=== PATIENT | female | born 1940 | race Caucasian/White ===

== ENCOUNTER 2018-09-22 09:14 | Observation (INO) | payer MEDICARE, BC ==
[2018-09-22] MEDS ORDERED: SODIUM CHLORIDE 0.9% 1,000 ML IV STA (09:22)
[2018-09-22] MEDS ORDERED: ACETAMINOPHEN TAB 325 MG TAB PO STA (09:22)
--- NOTE | 2018-09-22 09:52 | ED ---
General Adult HPI - General Chief complaint: Weakness Stated complaint: weakness, shaking Time Seen by Provider: 09/22/18 09:22 Source: patient, RN notes reviewed, old records reviewed Mode of arrival: wheelchair Limitations: no limitations - History of Present Illness Initial comments: 78-year-old female presented for evaluation of fever and chills and generalized weakness. Patient was seen at an outside hospital with urinary tract infection 4 days prior to arrival. She was admitted and subsequently released. She states she was feeling much better at the time of discharge. She was prescribed Macrobid and has been taking this for the past 2 days. Yesterday evening she developed subjective fever chills and Eros's. She's had some nausea without vomiting. No abdominal pain. No chest pain or dyspnea. No cough. No rash. - Related Data Home Medications Medication Instructions Recorded Confirmed ALPRAZolam [Xanax] 0.25 mg PO DAILY PRN 09/22/18 09/22/18 Aspirin EC [Ecotrin Low Dose] 81 mg PO DAILY 09/22/18 09/22/18 Atenolol [Tenormin] 25 mg PO DAILY 09/22/18 09/22/18 Lisinopril [Zestril] 20 mg PO DAILY 09/22/18 09/22/18 Omeprazole [PriLOSEC] 20 mg PO DAILY 09/22/18 09/22/18 Verapamil HCl [Verapamil ER] 120 mg PO DAILY 09/22/18 09/22/18 Allergies Allergy/AdvReac Type Severity Reaction Status Date / Time nitrofurantoin AdvReac Nausea & Verified 09/22/18 09:51 [From Macrobid] Vomiting sulfamethoxazole AdvReac Nausea & Verified 09/22/18 09:51 [From Bactrim] Vomiting trimethoprim [From Bactrim] AdvReac Nausea & Verified 09/22/18 09:51 Vomiting Review of Systems ROS Statement: Those systems with pertinent positive or pertinent negative responses have been documented in the HPI. ROS Other: All systems not noted in ROS Statement are negative. Past Medical History Past Medical History: Hypertension Additional Past Medical History / Comment(s): hiatal hernia History of Any Multi-Drug Resistant Organisms: None Reported Past Psychological History: No Psychological Hx Reported Smoking Status: Never smoker Past Alcohol Use History: None Reported Past Drug Use History: None Reported General Exam Limitations: no limitations General appearance: alert, in no apparent distress Head exam: Present: atraumatic, normocephalic Eye exam: Present: normal appearance, PERRL ENT exam: Present: mucous membranes dry Neck exam: Present: normal inspection. Absent: tenderness, meningismus Respiratory exam: Present: normal lung sounds bilaterally. Absent: respiratory distress, wheezes, rales Cardiovascular Exam: Present: regular rate, normal rhythm GI/Abdominal exam: Present: soft. Absent: distended, tenderness, guarding, rebound Extremities exam: Present: normal inspection, normal capillary refill. Absent: pedal edema Neurological exam: Present: alert, oriented X3, CN II-XII intact. Absent: motor sensory deficit Psychiatric exam: Present: normal affect, normal mood Skin exam: Present: warm, dry, intact. Absent: cyanosis, diaphoretic Course Vital Signs 09/22/18 09:16 Temperature 100.8 F H Pulse Rate 86 Respiratory 18 Rate Blood Pressure 160/73 O2 Sat by Pulse 98 Oximetry EKG Findings - EKG Comments: EKG Findings:: EKG: Normal sinus rhythm and LVH, left extremity deviation, rate of 84, ND interval 178, QRS duration 84, QTC 432 Medical Decision Making - Medical Decision Making 78-year-old female presenting for evaluation of fever, generalized weakness. She currently being treated for urinary tract infection. She has complained of chills, Eros's. No abdominal pain. CBC is within normal limits with the exception of a 0.3 PMNs. Chest x-ray negative for focal pneumonia. Urinalysis is negative, influenza negative. Patient's laboratory studies are otherwise unremarkable. I did reevaluate this patient, she has no focal abdominal pain. Given the clean urinalysis recent UTI, I am concerned the patient may be bacteremic. Both urine culture and blood cultures are pending. She will be admitted for IV hydration, IV antibiotics awaiting culture results. - Lab Data Result diagrams: 09/22/18 09:45 09/22/18 09:45 Lab Results 09/22/18 09/22/18 09/22/18 Range/Units 09:45 09:45 09:45 WBC 8.9 (3.8-10.6) k/uL RBC 4.98 (3.80-5.40) m/uL Hgb 13.4 (11.4-16.0) gm/dL Hct 39.1 (34.0-46.0) % MCV 78.6 L (80.0-100.0) fL MCH 26.9 (25.0-35.0) pg MCHC 34.2 (31.0-37.0) g/dL RDW 14.7 (11.5-15.5) % Plt Count 172 (150-450) k/uL Neutrophils % 93 % Lymphocytes % 3 % Monocytes % 3 % Eosinophils % 1 % Basophils % 0 % Neutrophils # 8.3 H (1.3-7.7) k/uL Lymphocytes # 0.3 L (1.0-4.8) k/uL Monocytes # 0.2 (0-1.0) k/uL Eosinophils # 0.1 (0-0.7) k/uL Basophils # 0.0 (0-0.2) k/uL Sodium 132 L (137-145) mmol/L Potassium 4.4 (3.5-5.1) mmol/L Chloride 99 (98-107) mmol/L Carbon Dioxide 23 (22-30) mmol/L Anion Gap 10 mmol/L BUN 15 (7-17) mg/dL Creatinine 1.14 H (0.52-1.04) mg/dL Est GFR (CKD-EPI)AfAm 53 (>60 ml/min/1.73 sqM) Est GFR (CKD-EPI)NonAf 46 (>60 ml/min/1.73 sqM) Glucose 133 H (74-99) mg/dL Plasma Lactic Acid Aashish (0.7-2.0) mmol/L Calcium 9.2 (8.4-10.2) mg/dL Total Bilirubin 0.8 (0.2-1.3) mg/dL AST 24 (14-36) U/L ALT 13 (9-52) U/L Alkaline Phosphatase 61 (38-126) U/L Total Protein 7.0 (6.3-8.2) g/dL Albumin 4.3 (3.5-5.0) g/dL Urine Color Urine Appearance (Clear) Urine pH (5.0-8.0) Ur Specific [place] (1.001-1.035) Urine Protein (Negative) Urine Glucose (UA) (Negative) Urine Ketones (Negative) Urine Blood (Negative) Urine Nitrite (Negative) Urine Bilirubin (Negative) Urine Urobilinogen (<2.0) mg/dL Ur Leukocyte Esterase (Negative) Influenza Type A RNA Not Detected (Not Detectd) Influenza Type B (PCR) Not Detected (Not Detectd) 09/22/18 09/22/18 Range/Units 09:45 09:45 WBC (3.8-10.6) k/uL RBC (3.80-5.40) m/uL Hgb (11.4-16.0) gm/dL Hct (34.0-46.0) % MCV (80.0-100.0) fL MCH (25.0-35.0) pg MCHC (31.0-37.0) g/dL RDW (11.5-15.5) % Plt Count (150-450) k/uL Neutrophils % % Lymphocytes % % Monocytes % % Eosinophils % % Basophils % % Neutrophils # (1.3-7.7) k/uL Lymphocytes # (1.0-4.8) k/uL Monocytes # (0-1.0) k/uL Eosinophils # (0-0.7) k/uL Basophils # (0-0.2) k/uL Sodium (137-145) mmol/L Potassium (3.5-5.1) mmol/L Chloride (98-107) mmol/L Carbon Dioxide (22-30) mmol/L Anion Gap mmol/L BUN (7-17) mg/dL Creatinine (0.52-1.04) mg/dL Est GFR (CKD-EPI)AfAm (>60 ml/min/1.73 sqM) Est GFR (CKD-EPI)NonAf (>60 ml/min/1.73 sqM) Glucose (74-99) mg/dL Plasma Lactic Acid Aashish 1.8 (0.7-2.0) mmol/L Calcium (8.4-10.2) mg/dL Total Bilirubin (0.2-1.3) mg/dL AST (14-36) U/L ALT (9-52) U/L Alkaline Phosphatase (38-126) U/L Total Protein (6.3-8.2) g/dL Albumin (3.5-5.0) g/dL Urine Color Yellow Urine Appearance Clear (Clear) Urine pH 8.0 (5.0-8.0) Ur Specific [place] 1.018 (1.001-1.035) Urine Protein Negative (Negative) Urine Glucose (UA) Negative (Negative) Urine Ketones Negative (Negative) Urine Blood Negative (Negative) Urine Nitrite Negative (Negative) Urine Bilirubin Negative (Negative) Urine Urobilinogen <2.0 (<2.0) mg/dL Ur Leukocyte Esterase Negative (Negative) Influenza Type A RNA (Not Detectd) Influenza Type B (PCR) (Not Detectd) Disposition Clinical Impression: UTI (urinary tract infection), Generalized weakness, Dehydration Disposition: ADMITTED IP TO THIS HOSP Condition: Stable Is patient prescribed a controlled substance at d/c from ED?: No Referrals: Nonstaff,Physician [Primary Care Provider] - 1-2 days Decision to Admit Reason: Admit from EC Decision Date: 09/22/18 Decision Time: 12:32
[2018-09-22 10:06] LABS: Appearance,Urine Clear (Clear); Bilirubin,Urine Negative (Negative); Blood,Urine Negative (Negative); Color,Urine Yellow; Glucose,Urine (UA) Negative (Negative); Ketones,Urine Negative (Negative); Leukocyte Esterase,Urine Negative (Negative); Nitrite,Urine Negative (Negative); Protein,Urine Negative (Negative); Specific Gravity,Urine 1.018 (1.001-1.035); Urobilinogen,Urine <2.0 mg/dL (<2.0)
[2018-09-22 10:15] LABS: Albumin 4.3 g/dL (3.5-5.0); Calcium 9.2 mg/dL (8.4-10.2); Potassium 4.4 mmol/L (3.5-5.1); Total Bilirubin 0.8 mg/dL (0.2-1.3)
[2018-09-22 10:22] LABS: Basophils % (A) 0 %; Eosinophils # (A) 0.1 k/uL (0-0.7); Eosinophils % (A) 1 %; HCT 39.1 % (34.0-46.0); HGB 13.4 gm/dL (11.4-16.0); Lymphocytes # (A) 0.3 k/uL (1.0-4.8); Lymphocytes % (A) 3 %; MCH 26.9 pg (25.0-35.0); MCHC 34.2 g/dL (31.0-37.0); MCV 78.6 fL (80.0-100.0); Mean Platelet Volume 8.1; Monocytes # (A) 0.2 k/uL (0-1.0); Monocytes % (A) 3 %; Neutrophils # (A) 8.3 k/uL (1.3-7.7); Neutrophils % (A) 93 %; Platelet Count 172 k/uL (150-450); RBC 4.98 m/uL (3.80-5.40); RDW 14.7 % (11.5-15.5); WBC 8.9 k/uL (3.8-10.6)
[2018-09-22] MEDS ORDERED: cefTRIAXone IN SWFI 1,000 MG/10 ML SYRINGE IVP STA (10:34)
--- NOTE | 2018-09-22 10:36 | XR ---
EXAMINATION TYPE: XR chest 2V DATE OF EXAM: 09/22/2018 COMPARISON: NONE TECHNIQUE: PA and lateral views submitted. HISTORY: Fever FINDINGS: The lungs are clear and there is no pneumothorax, pleural effusion, or focal pneumonia. Atheroscler otic changes aorta. Hyperinflation noted. Hypertrophic and degenerative change of the spine. Biapical pleural thickening. Heart size normal. IMPRESSION: 1. Correlate for COPD.
[2018-09-22] MEDS ORDERED: NALOXONE 0.4 MG/ML 1 ML VIAL IV PRN (12:27)
[2018-09-22] MEDS: SODIUM CHLORIDE 0.9% 1,000 ML IV SCH ×2 (12:34→17:12)
[2018-09-22] MEDS ORDERED: ALPRAZolam 0.25 MG TAB PO PRN (16:29)
[2018-09-22] MEDS ORDERED: ATENOLOL 25 MG TAB PO SCH (16:30)
[2018-09-22] MEDS ORDERED: VERAPAMIL SR 120 MG TABLET.ER PO SCH (16:30)
[2018-09-22] MEDS ORDERED: ASPIRIN 81 MG PO SCH (16:30)
--- NOTE | 2018-09-22 17:08 | P.HPIM ---
History of Present Illness H&P Date: 09/22/18 Chief Complaint: Chills 78-year-old female with PMH of hypertension and hiatal hernia presents to the ED for generalized weakness and chills. Patient reports going to the ED at [facility] on Wednesday for generalized weakness, nausea and burning lower abdominal pain. Patient was found to be hyponatremic and was diagnosed with UTI on urinalysis while hospitalized. Apparently, she had been started on a water pill recently by her PCP. She was discharged on Wednesday with a prescription for Macrobid. Patient reports taking 2 tablets of Macrobid on Wednesday. On , patient noted that she had chills with uncontrollable shaking. Patient reports a previous incidents when she took Bactrim, was told that she was ALLERGIC to sulfa medications. She took her blood pressure at that time which was elevated at 189/94. Her symptoms continued to persist, prompting her to come to the ED at [facility]. Patient reports her blood pressure to be usually in the 140s over 70s. [facility] pressure management. She also sees Dr. Armijo for hiatal hernia. Patient currently complains of headache that is in the frontal and occipital area. Patient reports that she usually gets a headache when her blood pressure is too high. She denies any lower extremity edema, nausea, fever, cough, chest pain, shortness of breath, palpitations, changes in urination or bowel habits. No changes in appetite or weight. She denies any dizziness, numbness/weakness/tingling of the extremities. In the ED, patient was noted to have a T-max of 100.8F. Her vital signs were otherwise within normal limits. CBC showed no leukocytosis but did show a left shift. CMP showed sodium of 132, creatinine of 1.14 and glucose of 133. Lactic acid was negative. Urinalysis was clean. Patient is admitted for dehydration, hy ponatremia, and possible infectious etiology. Review of Systems Pertinent positives and negatives as discussed in HPI, a complete review of systems was performed and all other systems are negative. Past Medical History Past Medical History: GERD/Reflux, Hypertension, Osteoarthritis (OA) Additional Past Medical History / Comment(s): Hiatal hernia, UTIs lately, constipation, pt thinks years ago she was told she had an arrhythmia-does not recall details. History of Any Multi-Drug Resistant Organisms: None Reported Past Surgical History: Tonsillectomy Additional Past Surgical History / Comment(s): Colonoscopy Past Anesthesia/Blood Transfusion Reactions: No Reported Reaction Smoking Status: Never smoker - Past Family History Father Family Medical History: CVA/TIA Additional Family Medical History / Comment(s): Father of a CVA at the age of 69yrs. Mother Family Medical History: No Reported History Additional Family Medical History / Comment(s): Mother was healthy and lived to be 95yrs old. Medications and Allergies Home Medications Medication Instructions Recorded Confirmed Type ALPRAZolam [Xanax] 0.25 mg PO DAILY PRN 09/22/18 09/22/18 History Aspirin EC [Ecotrin Low Dose] 81 mg PO DAILY 09/22/18 09/22/18 History Atenolol [Tenormin] 25 mg PO DAILY 09/22/18 09/22/18 History Lisinopril [Zestril] 20 mg PO DAILY 09/22/18 09/22/18 History Omeprazole [PriLOSEC] 20 mg PO DAILY 09/22/18 09/22/18 History Verapamil HCl [Verapamil ER] 120 mg PO DAILY 09/22/18 09/22/18 History Allergies Allergy/AdvReac Type Severity Reaction Status Date / Time nitrofurantoin AdvReac Nausea & Verified 09/22/18 09:51 [From Macrobid] Vomiting Sulfa (Sulfonamide AdvReac Nausea & Verified 09/22/18 15:15 Antibiotics) Vomiting sulfamethoxazole AdvReac Nausea & Verified 09/22/18 09:51 [From Bactrim] Vomiting trimethoprim [From Bactrim] AdvReac Nausea & Verified 09/22/18 09:51 Vomiting Physical Exam Vitals: Vital Signs Temp Pulse Pulse Resp BP BP Pulse Ox 09/22/18 13:41 98.1 F 90 18 169/77 98 09/22/18 13:00 98.8 F 82 18 142/64 98 09/22/18 12:40 98.5 F 81 18 142/64 98 09/22/18 09:16 100.8 F H 86 18 160/73 98 Intake and Output 09/22/18 09/22/18 09/22/18 06:59 14:59 22:59 Other: Voiding Method Toilet Weight 71.668 kg General: [non toxic], [no distress], [appears at stated age] Derm: [warm], [dry] Head: [atraumatic], [normocephalic], [symmetric] Eyes: [EOMI], [no lid lag], [anicteric sclera] Mouth: [no lip lesion], [mucus membranes moist] Cardiovascular: [S1S2 reg], [no murmur], [positive DP pulse bilateral] Lungs: [CTA bilateral], [no rhonchi, no rales] , [no accessory muscle use] Abdominal: [soft], [ nontender to palpation], [no guarding], [no appreciable organomegaly] Ext: [no gross muscle atrophy], [no edema], [no contractures] Neuro: [ CN II-XI grossly intact], [no focal neuro deficits] Psych: [Alert], [oriented], [appropriate affect] Results CBC & Chem 7: 09/22/18 09:45 09/22/18 09:45 Labs: Abnormal Lab Results - Last 24 Hours (Table) 09/22/18 09/22/18 Range/Units 09:45 09:45 MCV 78.6 L (80.0-100.0) fL Neutrophils # 8.3 H (1.3-7.7) k/uL Lymphocytes # 0.3 L (1.0-4.8) k/uL Sodium 132 L (137-145) mmol/L Creatinine 1.14 H (0.52-1.04) mg/dL Glucose 133 H (74-99) mg/dL Thrombosis Risk Factor Assmnt - Choose All That Apply Any of the Below Risk Factors Present?: Yes Each Factor Represents 1 point: Obesity (BMI >25) Other Risk Factors: Yes Each Risk Factor Represents 3 Points: Age 75 years or older Other congenital or acquired thrombophilia - If yes, enter type in comment: No Thrombosis Risk Factor Assessment Total Risk Factor Score: 4 Thrombosis Risk Factor Assessment Level: Moderate Risk Assessment and Plan Assessment: Assessment and Plan Fever and chills with neutrophilia Hyponatremia Acute kidney injury Hypertension Hiatal hernia T-max 100.8F. Patient has no leukocytosis but does have a left shift with neutrophilia. Urinalysis is negative. Influenza negative. Chest x-ray shows signs of COPD. I was able to call [facility] and review the urine culture, patient had no growth after 18 hours. Lactic acid negative. Plan: Tylenol as needed for fever. Continue normal saline at 75 mL per hour. We'll hold off antibiotics at this time. Follow blood and urine culture. Morning CBC. Sodium 132 likely secondary to diuretic and hypovolemic hyponatremia. Plan: Continue normal saline at 75 mL per hour. Daily BMP. Creatinine 1.14 likely secondary to dehydration. Plan: Continue normal saline at 75 mL per hour. Daily BMP. BP 169/77. Her headache is likely due to elevated BP. Plan: Continue atenolol, lisinopril and verapamil. Monitor vitals, adjust medications as necessary. Plan: Continue Protonix. Follow Dr. Armijo in the outpatient setting. Patient admitted for fever and chills with neutrophilia. She is hemodynamically stable. She has no source of infection at this time so we will hold off antibiotics. Follow cultures. Patient is pending clinical improvement. Likely DC tomorrow.
[2018-09-22] MEDS: LISINOPRIL 20 MG TAB PO SCH (17:11)
[2018-09-22] MEDS: ACETAMINOPHEN TAB 325 MG TAB PO PRN ×2 (17:11→23:11)
[2018-09-22] MEDS: PANTOPRAZOLE 40 MG TABLET PO SCH (17:13)
[2018-09-23 00:44] VITALS: RESP 18
[2018-09-23] MEDS: SODIUM CHLORIDE 0.9% 1,000 ML IV SCH (02:23)
[2018-09-23 07:22] VITALS: BP 136/65; PULSE 71; TEMP 98
[2018-09-23] MEDS: LISINOPRIL 20 MG TAB PO SCH (08:11)
[2018-09-23] MEDS: PANTOPRAZOLE 40 MG TABLET PO SCH (08:11)
[2018-09-23 08:18] LABS: Basophils % (A) 1 %; Eosinophils # (A) 0.2 k/uL (0-0.7); Eosinophils % (A) 7 %; HGB 11.7 gm/dL (11.4-16.0); Lymphocytes # (A) 0.3 k/uL (1.0-4.8); Lymphocytes % (A) 11 %; MCH 26.3 pg (25.0-35.0); MCHC 32.6 g/dL (31.0-37.0); MCV 80.6 fL (80.0-100.0); Mean Platelet Volume 7.6; Monocytes # (A) 0.1 k/uL (0-1.0); Monocytes % (A) 4 %; Neutrophils # (A) 2.4 k/uL (1.3-7.7); Neutrophils % (A) 77 %; Platelet Count 155 k/uL (150-450); RBC 4.46 m/uL (3.80-5.40); RDW 14.4 % (11.5-15.5); WBC 3.1 k/uL (3.8-10.6)
[2018-09-23 08:28] LABS: Albumin 3.2 g/dL (3.5-5.0); Calcium 8.3 mg/dL (8.4-10.2); Potassium 3.9 mmol/L (3.5-5.1); Total Bilirubin 0.4 mg/dL (0.2-1.3); Total Protein 5.6 g/dL (6.3-8.2)
--- NOTE | 2018-09-23 09:16 | P.DS ---
Providers Date of admission: 09/22/18 12:27 Expected date of discharge: 09/23/18 Attending physician: Jas Schulz MD Primary care physician: Physician [facility] Hospital Course: 78-year-old female with PMH of hypertension and hiatal hernia presents to the ED for generalized weakness and chills. Patient reports going to the ED at [facility] on Wednesday for generalized weakness, nausea and burning lower abdominal pain. Patient was found to be hyponatremic and was diagnosed with UTI on urinalysis while hospitalized. Apparently, she had been started on a water pill recently by her PCP. She was discharged on Wednesday with a prescription for Macrobid. Patient reports taking 2 tablets of Macrobid on Wednesday. On , patient noted that she had chills with uncontrollable shaking. Patient reports a previous incidents when she took Bactrim, was told that she was ALLERGIC to sulfa medications. She took her blood pressure at that time which was elevated at 189/94. Her symptoms continued to persist, prompting her to come to the ED at [facility]. Patient reports her blood pressure to be usually in the 140s over 70s. She had an appointment [facility] today for blood pressure management. She also sees Dr. Armijo for hiatal hernia. Patient currently complains of headache that is in the frontal and occipital area. Patient reports that she usually gets a headache when her blood pressure is too high. She denies any lower extremity edema, nausea, fever, cough, chest pain, shortness of breath, palpitations, changes in urination or bowel habits. No changes in appetite or weight. She denies any dizziness, numbness/weakness/tingling of the extremities. In the ED, patient was noted to have a T-max of 100.8F. Her vital signs were otherwise within normal limits. CBC showed no leukocytosis but did show a left shift. CMP showed sodium of 132, creatinine of 1.14 and glucose of 133. Lactic acid was negative. Urinalysis was clean. Patient is admitted for dehydration, hypona tremia, and possible infectious etiology. With regard to her fever, patient had a T-max of 100.8F on admission, afebrile since then. She had no leukocytosis but did have a left shift with neutrophi rafa. Urinalysis was negative. Influenza was negative. Chest x-ray showed no acute findings. I was able to call the ED and [facility] and review her urine culture, patient had no growth after 18 hours. Her lactic acid was negative. Patient was given Tylenol as needed for fever. She was given normal saline at 75 mL per hour. Antibiotics were discontinued as patient had no signs of infection at this time. Urine culture and blood cultures were pending at the time of discharge. Patient initially had a sodium of 132 on admission. This was likely secondary to diuretic use and hypovolemic hyponatremia. She was given gentle hydration overnight. Her sodium on discharge was 135. Patient had a creatinine of 1.14 on admission. Sepsis is likely secondary to dehydration. She was given gentle hydration. Her creatinine was within normal limits on discharge. Patient was seen and examined prior to discharge. No acute events overnight. Patient reports no symptoms overnight. She denies any headache, abdominal pain, nausea or vomiting, fever or chills. She denies any chest pain, shortness of breath or palpitations. States that her daughter is driving down to the hospital and she is her only right. Looking for to going home. General: [non toxic], [no distress], [appears at stated age] Derm: [warm], [dry] Head: [atraumatic], [normocephalic], [symmetric] Eyes: [EOMI], [no lid lag], [anicteric sclera] Mouth: [no lip lesion], [mucus membranes moist] Cardiovascular: [S1S2 reg], [no murmur], [positive DP pulse bilateral] Lungs: [CTA bilateral], [no rhonchi, no rales] , [no accessory muscle use] Abdominal: [soft], [ nontender to palpation], [no guarding], [no appreciable organomegaly] Ext: [no gross muscle atrophy], [no edema], [no contractures] Neuro: [ CN II-XI grossly intact], [no focal neuro deficits] Psych: [Alert], [oriented], [appropriate affect] Assessment and Plan Leukopenia Fever and chills with neutrophilia Hyponatremia Acute kidney injury Hypertension Hiatal hernia WBC count 3.1 this morning. Appears dilutional as all cell lines have decreased. Plan: Follow-up with PCP. T-max 100.8F, Afebrile since. Patient has no leukocytosis but does have a left shift with neutrophilia. Urinalysis is negative. Influenza negative. Chest x- ray shows signs of COPD. I was able to call [facility] and review the urine culture, patient had no growth after 18 hours. Lactic acid negative. Plan: Tylenol as needed for fever. Continue normal saline at 75 mL per hour. We'll hold off antibiotics at this time. Follow blood and urine culture. Sodium 132-135 likely secondary to diuretic and hypovolemic hyponatremia. Plan: Continue normal saline at 75 mL per hour. Daily BMP. Creatinine 1.14-within normal limits likely secondary to dehydration. Plan: Continue normal saline at 75 mL per hour. Daily BMP. BP 136/65. Her headache is likely due to elevated BP. Plan: Continue atenolol, lisinopril and verapamil. Monitor vitals, adjust medications as necessary. Plan: Continue Protonix. Follow Dr. Armijo in the outpatient setting. Patient admitted for fever and chills with neutrophilia. She is hemodynamically stable. She has no source of infection at this time so we will hold off antibiotics. Patient advised to follow-up blood and urine cultures with her PCP. Pertinent Studies: chest x-ray, blood and urine cultures. Patient Condition at Discharge: Stable Plan - Discharge Summary Discharge Rx Participant: No New Discharge Prescriptions: Continue Aspirin EC [Ecotrin Low Dose] 81 mg PO DAILY ALPRAZolam [Xanax] 0.25 mg PO DAILY PRN PRN Reason: Anxiety Omeprazole [PriLOSEC] 20 mg PO DAILY Lisinopril [Zestril] 20 mg PO DAILY Atenolol [Tenormin] 25 mg PO DAILY Verapamil HCl [Verapamil ER] 120 mg PO DAILY Discharge Medication List ALPRAZolam [Xanax] 0.25 mg PO DAILY PRN 09/22/18 [History] Aspirin EC [Ecotrin Low Dose] 81 mg PO DAILY 09/22/18 [History] Atenolol [Tenormin] 25 mg PO DAILY 09/22/18 [History] Lisinopril [Zestril] 20 mg PO DAILY 09/22/18 [History] Omeprazole [PriLOSEC] 20 mg PO DAILY 09/22/18 [History] Verapamil HCl [Verapamil ER] 120 mg PO DAILY 09/22/18 [History] Follow up Appointment(s)/Referral(s): Nonstaff,Physician [Primary Care Provider] - 1-2 days Activity/Diet/Wound Care/Special Instructions: Diet: Heart healthy Follow-up with PCP within 1-2 days of discharge. Your PCP will need to follow-up with a urine and blood cultures were taken during this admission. Please come back to the ED or call 911 for worsening fevers greater than 101.4 F ahrenheit, chest pain, shortness of breath or palpitations. Discharge Disposition: HOME SELF-CARE
[2018-09-23] MEDS ORDERED: ATENOLOL 25 MG TAB PO SCH (12:00)
[2018-09-23] MEDS ORDERED: ASPIRIN 81 MG PO SCH (21:00)
[2018-09-23] MEDS ORDERED: VERAPAMIL SR 120 MG TABLET.ER PO SCH (21:00)
== END 2018-09-23 10:40 | disposition home or self-care (01) ==
LOC: EC 09:14 → 1SOBS 12:27
PROVIDERS: ADMIT Family Medicine; ATTEND Family Medicine
DX: N39.0 Urinary tract infection, site not specified (principal); E86.0 Dehydration; E87.1 Hypo-osmolality and hyponatremia; I10 Essential (primary) hypertension; K44.9 Diaphragmatic hernia without obstruction or gangrene; E86.1 Hypovolemia; K21.9 Gastro-esophageal reflux disease without esophagitis; M19.90 Unspecified osteoarthritis, unspecified site; N17.9 Acute kidney failure, unspecified; Z79.82 Long term (current) use of aspirin; Z79.899 Other long term (current) drug therapy; Z88.1 Allergy status to other antibiotic agents; Z88.2 Allergy status to sulfonamides; Z82.3 Family history of stroke
CPT/HCPCS: 96361; 96374; 99285; 36415; 93005; 80053 ×2; 83605; 85025 ×2; 81003; 87040; 87086; 87502; 71046; G0378 ×2; J0696